=== PATIENT | female | born 1990 | race Caucasian/White ===

== ENCOUNTER 2017-05-26 20:20 | Emergency (ER) | payer BC, OTHER, SELFPAY ==
[~2017-05-26] VITALS: Ht 165.1 cm; Wt 60.7 kg
[2017-05-26] MEDS ORDERED: BUSP5TAB2 PO (20:56)
[2017-05-26] MEDS ORDERED: MIRT15TA4 PO (20:56)
[2017-05-26] MEDS ORDERED: ALPR-475 PO (20:56)
[2017-05-26] MEDS ORDERED: ESCI20TA10 PO (20:56)
[2017-05-26 21:07] LABS: BLOOD UREA NITROGEN 7 mg/dL (7-18)
[2017-05-26 21:56] LABS: HCG UR OBC PASS
[2017-05-26 22:18] VITALS: BP 118/70
== END 2017-05-26 22:21 | disposition home or self-care (01) ==
LOC: ED 22:18
DX: R11.0 Nausea (principal); E87.6 Hypokalemia
CPT/HCPCS: 36415; 80048; 81025; 82040; 84703; 85025; 93005; 99285